=== PATIENT | male | born 1985 | race Caucasian/White ===

== ENCOUNTER 2017-10-18 00:15 | Emergency (ER) | payer SELFPAY, BC ==
[2017-10-18] MEDS: CLINDAMYCIN 300 MG CAP PO (03:57)
[2017-10-18] MEDS: IBUPROFEN 600 MG TAB PO (03:57)
== END 2017-10-18 05:32 | disposition home or self-care (01) ==
LOC: FTE 00:15
DX: L03.116 Cellulitis of left lower limb (principal)
CPT/HCPCS: 73562; 99283-25